=== PATIENT | female | born 1990 | race Caucasian/White ===

== ENCOUNTER 2018-05-30 18:39 | Emergency (ER) | payer BC ==
[2018-05-30] MEDS ORDERED: KETOROLAC TROMETHAMINE 60 MG/2 ML SDV IM ONE (19:25)
--- NOTE | 2018-05-30 19:26 | ER Document Report ---
ED Medical Screen (RME) - General Chief Complaint: Abdominal Pain Stated Complaint: STOMACH PAIN Time Seen by Provider: 05/30/18 19:19 Notes: 27 years old female presents today with sudden onset of right upper quadrant and right flank pain. Just prior to arrival associated with nausea no vomiting. No dysuria frequency urgency. Denies any hematuria. Denies being . On examination has a sharp right upper quadrant tenderness noted. TRAVEL OUTSIDE OF THE [place] IN LAST 30 DAYS: No - Related Data Allergies/Adverse Reactions: No Known Allergies Allergy (Verified 05/30/18 18:42) Past Medical History - Social History Chew tobacco use (# tins/day): No Frequency of alcohol use: None Drug Abuse: None Pulmonary Medical History: Denies: Hx Tuberculosis Neurological Medical History: Denies: Hx Seizures Renal/ Medical History: Denies: Hx Peritoneal Dialysis Psychiatric Medical History: Reports: Hx Attention Deficit Hyperactivity Disorder Denies: Hx Schizophrenia Past Surgical History: Denies: Hx Appendectomy, Hx Bowel Surgery, Hx Section, Hx Cholecystectomy, Hx Coronary Artery Bypass Graft, Hx Gastric Bypass Surgery, Hx Herniorrhaphy, Hx Hysterectomy, Hx Mastectomy, Hx Pacemaker, Hx Tonsillectomy, Hx Tubal Ligation - Immunizations Hx Diphtheria, Pertussis, Tetanus Vaccination: Yes Physical Exam - Vital signs Vitals: Temp Pulse Resp BP Pulse Ox 97.9 F 83 18 131/96 H 99 05/30/18 18:49 05/30/18 18:49 05/30/18 18:49 05/30/18 18:49 05/30/18 18:49 Course - Vital Signs Vital signs: Temp Pulse Resp BP Pulse Ox 97.9 F 83 18 131/96 H 99 05/30/18 18:49 05/30/18 18:49 05/30/18 18:49 05/30/18 18:49 05/30/18 18:49 Doctor's Discharge - Discharge Referrals: ABDIFATAH SANTIAGO MD [Primary Care Provider] - Follow up as needed
[2018-05-30] MEDS ORDERED: ONDANSETRON 4 MG TAB.RAPDIS PO ONE (19:27)
--- NOTE | 2018-05-30 20:14 | ER Document Report ---
ED General - General Mode of Arrival: Ambulatory Information source: Patient TRAVEL OUTSIDE OF THE [place] IN LAST 30 DAYS: No <MARGARITA VALVERDE - Last Filed: 05/30/18 21:35> <BRIAN ERNST - Last Filed: 05/31/18 00:26> - General Chief Complaint: Abdominal Pain Stated Complaint: STOMACH PAIN Time Seen by Provider: 05/30/18 19:19 Notes: Patient is a 27 year old female presenting to the emergency department complaining of abdominal pain and diarrhea onset today. Patient states around 1400 she began to notice loud bowel sounds and abdominal tightness and swelling. She said after she ate she began to have right upper quadrant pain described as a sharpness. She states the pain is currently located around her umbilicus region and is relieved when supine and exacerbated with standing. She states she had a small amount of diarrhea early today and further complains of nausea and vomiting x2. Patient states that her menstrual cycles are normally irregular and believes her LMP was sometime in April. (MARGARITA VALVERDE) - Related Data Allergies/Adverse Reactions: No Known Allergies Allergy (Verified 05/30/18 18:42) Past Medical History - General Information source: Patient - Social History Smoking Status: Never Smoker Chew tobacco use (# tins/day): No Frequency of alcohol use: None Drug Abuse: None Family History: Reviewed & Not Pertinent Patient has suicidal ideation: No Patient has homicidal ideation: No Psychiatric Medical History: Reports: Hx Attention Deficit Hyperactivity Disorder - Immunizations Hx Diphtheria, Pertussis, Tetanus Vaccination: Yes <MARGARITA VALVERDE - Last Filed: 05/30/18 21:35> Review of Systems - Review of Systems Constitutional: No symptoms reported EENT: No symptoms reported Cardiovascular: No symptoms reported Respiratory: No symptoms reported Gastrointestinal: See HPI, Abdominal pain, Diarrhea, Nausea, Vomiting Genitourinary: No symptoms reported Female Genitourinary: No symptoms reported Musculoskeletal: No symptoms reported Skin: No symptoms reported Hematologic/Lymphatic: No symptoms reported Neurological/Psychological: No symptoms reported -: Yes All other systems reviewed and negative <MARGARITA VALVERDE - Last Filed: 05/30/18 21:35> Physical Exam <MARGARITA VALVERDE - Last Filed: 05/30/18 21:35> <BRIAN ERNST - Last Filed: 05/31/18 00:26> - Vital signs Vitals: Temp Pulse Resp BP Pulse Ox 97.9 F 83 18 131/96 H 99 05/30/18 18:49 05/30/18 18:49 05/30/18 18:49 05/30/18 18:49 05/30/18 18:49 - Notes Notes: GENERAL: Alert, interacts well. No acute distress. HEAD: Normocephalic, atraumatic. EYES: Pupils equal, round, and reactive to light. Extraocular movements intact. ENT: Oral mucosa moist, tongue midline. NECK: Full range of motion. Supple. Trachea midline. LUNGS: Clear to auscultation bilaterally, no wheezes, rales, or rhonchi. No respiratory distress. HEART: Regular rate and rhythm. No murmurs, gallops, or rubs. ABDOMEN: Soft. Non-distended. On initial PA student exam patient was tender in the RUQ and RLQ. On repeat exam, patient is only tender to palpation to the LLQ.Hyperactive bowel sounds. EXTREMITIES: Moves all 4 extremities spontaneously. NEUROLOGICAL: Alert and oriented x3. Normal speech. PSYCH: Normal affect, normal mood. SKIN: Warm, dry, normal turgor. No rashes or lesions noted. (MARGARITA VALVERDE) Course - Laboratory Result Diagrams: 05/30/18 20:00 05/30/18 20:00 <MARGARITA VALVERDE - Last Filed: 05/30/18 21:35> - Laboratory Result Diagrams: 05/30/18 20:00 05/30/18 20:00 <BRIAN ERNST - Last Filed: 05/31/18 00:26> - Re-evaluation Re-evalutation: 05/30/18 21:15 CBC unremarkable, CMP unremarkable, lipase normal, urinalysis shows positive nitrites and small leukocyte esterase, 4 squamous epithelial cells, test is negative. Patient has no back pain, no dysuria, no frequency. This is asymptomatic bacteriuria, there is no indication for treating it at this time. Patient's nausea and vomiting has resolved with Zofran, patient's diarrhea is slowing down. Patient has already been able to eat and drink something without any difficulty. Patient's shifting abdominal tenderness on examination points away from appendicitis or any other surgical pathology. Discussed with patient that there is no indication for CT scan at this point, doubt surgical pathology. Patient is instructed to take Zofran as prescribed and use Imodium as directed on the box. Return for worsening abdominal pain, fevers or any new or concerning symptoms. (BRIAN ERNST) - Vital Signs Vital signs: Temp Pulse Resp BP Pulse Ox 98.0 F 82 16 112/84 100 05/30/18 21:33 05/30/18 21:33 05/30/18 21:33 05/30/18 21:33 05/30/18 21:33 - Laboratory Laboratory results interpreted by me: 05/30/18 05/30/18 20:00 20:24 MCH 33.5 H Seg Neutrophils % 80.2 H Lymphocytes % 11.6 L Urine Ketones 20 H Urine Nitrite POSITIVE H Ur Leukocyte Esterase SMALL H Discharge <MARGARITA VALVERDE - Last Filed: 05/30/18 21:35> <BRIAN ERNST - Last Filed: 05/31/18 00:26> - Discharge Clinical Impression: Nausea vomiting and diarrhea Condition: Stable Disposition: HOME, SELF-CARE Additional Instructions: Start with small amounts (two to six ounces) of clear liquids (soft drinks , herb teas, broth, etc). Try to take fluids frequently even if you are vomiting, to prevent dehydration. When liquids are being consumed successfully , advance to small amounts of bland food (mashed potato, toast) for 6 - 12 hours. Your symptoms may be caused by a viral infection, they may also be caused by food poisoning. It is possible that your nausea vomiting and diarrhea are early symptoms of a more severe infection. Return to the ED if blood appears in your vomitus or stool, if vomiting lasts longer than 24 hours, if the abdominal pain worsens or becomes localized to one area, or if you develop high fever. You may use Imodium as directed on the box. Prescriptions: Ondansetron [Zofran Odt 4 mg Tablet] 1 - 2 tab PO Q4H PRN #15 tab.rapdis PRN Reason: For Nausea/Vomiting Forms: Return to Work Referrals: ABDIFATAH SANTIAGO MD [ACTIVE STAFF] - Follow up as needed MARYLIN GUERRA MD [ACTIVE STAFF] - Follow up as needed Scribe Attestation: 05/31/18 00:26 I personally performed the services described in the documentation, reviewed and edited the documentation which was dictated to the scribe in my presence, and it accurately records my words and actions. (BRIAN ERNST) Scribe Documentation - Scribe Written by Tang:: Tang Fagan, 05/30/2018 20:18 acting as scribe for :: Erica <MARGARITA VALVERDE - Last Filed: 05/30/18 21:35>
[2018-05-30 20:18] LABS: ABSOLUTE EOSINOPHILS # (AUTO) 0.1 10^3/uL (0.0-0.6); ABSOLUTE MONOCYTES (AUTO) 0.6 10^3/uL (0.1-1.4); ABSOLUTE NEUT (AUTO) 6.9 10^3/uL (1.7-8.2); BASOPHILS % (AUTO) 0.5 % (0-2); EOSINOPHILS % (AUTO) 1.1 % (0-6); HEMOGLOBIN 14.6 g/dL (12.0-15.5); LYMPHOCYTES % (AUTO) 11.6 % (13-45); MEAN CORPUSCULAR HEMOGLOBIN 33.5 pg (27.0-33.4); MEAN CORPUSCULAR HGB CONC 35.6 g/dL (32.0-36.0); MEAN CORPUSCULAR VOLUME 94 fl (80-97); MONOCYTES % (AUTO) 6.6 % (3-13); PLATELET COUNT 237 10^3/uL (150-450); RED BLOOD COUNT 4.36 10^6/uL (3.72-5.28); RED CELL DISTRIBUTION WIDTH 13.1 % (11.5-14.0); SEGMENTED NEUTROPHILS % (AUTO) 80.2 % (42-78); TOTAL CELLS COUNTED % (AUTO) 100 %; WHITE BLOOD COUNT 8.7 10^3/uL (4.0-10.5)
[2018-05-30 20:30] LABS: ALANINE AMINOTRANSFERASE 21 U/L (9-52); ALBUMIN 4.6 g/dL (3.5-5.0); ALKALINE PHOSPHATASE 83 U/L (38-126); ANION GAP 15 (5-19); ASPARTATE AMINO TRANSFERASE 20 U/L (14-36); BILIRUBIN,DIRECT 0.1 mg/dL (0.0-0.4); BILIRUBIN,TOTAL 0.4 mg/dL (0.2-1.3); BLOOD UREA NITROGEN 8 mg/dL (7-20); CALCIUM 10.2 mg/dL (8.4-10.2); CARBON DIOXIDE 24 mmol/L (22-30); CHLORIDE 99 mmol/L (98-107); GLUCOSE 93 mg/dL (75-110); LIPASE 51.1 U/L (23-300); POTASSIUM 4.1 mmol/L (3.6-5.0); SODIUM 137.8 mmol/L (137-145)
[2018-05-30 20:40] LABS: APPEARANCE,URINE TURBID; BILIRUBIN,URINE NEGATIVE (NEGATIVE); COLOR,URINE YELLOW; GLUCOSE, URINE NEGATIVE (NEGATIVE); KETONES,URINE 20 mg/dL (NEGATIVE); LEUKOCYTE ESTERASE,URINE SMALL (NEGATIVE); NITRITE,URINE POSITIVE (NEGATIVE); PROTEIN,URINE NEGATIVE (NEGATIVE); URINE SPECIFIC GRAVITY 1.011; UROBILINOGEN,URINE NEGATIVE mg/dL (<2.0)
[2018-05-30 21:35] VITALS: BP 112/84
== END 2018-05-30 21:35 | disposition home or self-care (01) ==
LOC: ER 18:39
DX: R10.84 Generalized abdominal pain (principal); R19.7 Diarrhea, unspecified; R11.2 Nausea with vomiting, unspecified
CPT/HCPCS: 99284; 96372; 36415; 83690; 85025; 81025; 80053; 81001; J1885; S0119